=== PATIENT | male | born 1935 | race Caucasian/White ===

== ENCOUNTER 2017-01-19 08:12 | Emergency (ER) | payer OTHER ==
[~2017-01-19 08:12] MED LIST: ASPIRIN325 MG PO; CRESTOR5 MG PO; DIAZEPAM10 MG PO; HYCET1 ML PO; PERCOCET1 TA1 PO; VITAMIN D-31000 UNIT PO
--- NOTE | 2017-01-19 09:08 | ED CLINICAL REPORT ---
Clinical Report - Physicians/Mid Levels [facility] [address] [place] [address] 01/19/2017 8:14 Patient: BALDOMERO SNELL Time Seen: 08:21; initial patient contact. Arrived- By ambulance. Historian- patient. HISTORY OF PRESENT ILLNESS Chief Complaint: NOSEBLEED. Since just prior to arrival and is still present. Location- right nare and left nare. The patient has had epistaxis and nasal congestion. No recent nasal injury. Similar symptoms previously: Several times. Recent medical care: The patient was seen recently in the office. ( Had labs: HCT 39.4, PLT 336k, and nl INR.). REVIEW OF SYSTEMS The patient has had a headache. No bloody stools. All systems otherwise negative, except as recorded above. PAST HISTORY Epistaxis. Chest Wall Pain. Hypertension. Pleurisy. Pneumonia. Peptic Ulcer Disease. Immunizations. Hypercholesterolemia. Mesothelioma. SURGERIES: Back Surgery. Hernia Repair. Shoulder Surgery. Ureteral Stent. Medications: OxyCODONE HCl Oral 10 mg, as needed. OxyCONTIN Oral 20 mg, 3x a day. Allergies: Penicillin. Tetracycline. SOCIAL HISTORY Smoker - current status unknown. No alcohol use or drug use. ADDITIONAL NOTES The nursing notes have been reviewed with agreement regarding the chief complaint, PMH and patient medications and allergies. PHYSICAL EXAM Vital Signs: 01/19/2017 08:23 BP: 102/65. HR: 100. RR: 18. O2 saturation: 96%. Temp: 97.3 F. Pain level now: 2/10. Have been reviewed as normal. Appearance: Alert. No acute distress. Eyes: Eyes normal inspection. No pale conjunctivae or scleral icterus. Nose: Small amount of right-nare and left-nare fresh clots. No active bleeding, nasal mucosal inflammation or tenderness to palpation/percussion over the sinuses. No nasal foreign body. Throat: Bleeding from nasopharynx (Small clot). CVS: Normal heart rate and rhythm. Heart sounds normal. Respiratory: No respiratory distress. Breath sounds normal. Skin: Skin warm and dry. Normal skin color. Neuro: Oriented X 3. PROGRESS AND PROCEDURES Course of Care: 09:06 01/19/17. Afrin to both nares and pressure x 5 minutes and observed for several minutes w/ no active bleeding. Disposition: Discharged home in good and improved condition. Condition: good. CLINICAL IMPRESSION Acute posterior, mild epistaxis INSTRUCTIONS Drink plenty of fluids. Your Current Medications: CONTINUE TAKING THE FOLLOWING MEDICATIONS: Crestor Oral. Docusate Sodium Oral. Megace Oral Oral. OxyCODONE HCl Oral : 10 mg, prn. OxyCONTIN Oral : 20 mg 3x a day. SEROquel Oral. Follow-up: Follow up with your doctor in about four days. Call for an appointment. Screening today revealed the patient's blood pressure to be in the normal range. (Electronically signed by Tommy Rush Dr. 01/19/2017 9:26)
--- NOTE | 2017-01-19 09:08 | ED ORDER SUMMARY ---
..... Patient: BALDOMERO SNELL OrderSheet [facility] VisitID: [id number] [address] [place] [address] 82y, M Registration Date/Time: 01/19/2017 ORDER SHEET Weight: 60.3 kg (stated) Allergies: Tetracycline, Penicillin GENERAL ORDERS: CT Head wo Cont Urgent (08:01/19/2017 Brandon Roper) (Ack 8:29 Dominic) (Cancelled: Physician Order8:30 Brandon Roper) CT Sinus/Facial Bones wo Cont Urgent (08:01/19/2017 Brandon Roper) (Ack 8:29 Dominic) (Cancelled: Physician Order8:30 Brandon Roper) MEDICATION ORDERS: Hydrocodone-APAP PO 10/650 mg (NOW, HIGH ALERT MEDICATION) (08:24 01/19/2017 Brandon Roper) (Cancelled: Physician Order8:29 Brandon Roper) Oxycodone-APAP PO 10/650 mg (HIGH ALERT MEDICATION, NOW) (08:32 01/19/2017 Brandon Roper) (8:45 Bia R.N.) Afrin Nasal [place] 2 sprays (NOW, both nares) (08:01/19/2017 Brandon Roper) (8:45 Bia R.N.) IV FLUIDS: ORDER SHEET NOTES: [Electronically signed by Tommy Rush Dr. (09:26 01/19/2017)] [Electronically signed by Carolina Ayon R.N. (11:43 01/19/2017)] [Electronically locked/signed by Carolina Ayon R.N. (11:43 01/19/2017)]
--- NOTE | 2017-01-19 09:08 | ED ORDER SUMMARY ---
..... Patient: BALDOMERO SNELL OrderSheet [facility] VisitID: [id number] [address] [place] [address] 82y, M Registration Date/Time: 01/19/2017 ORDER SHEET Weight: 60.3 kg (stated) Allergies: Tetracycline, Penicillin GENERAL ORDERS: CT Head wo Cont Urgent (08:01/19/2017 Brandon Roper) (Ack 8:29 Dominic) (Cancelled: Physician Order8:30 Brandon Roper) CT Sinus/Facial Bones wo Cont Urgent (08:01/19/2017 Brandon Roper) (Ack 8:29 Dominic) (Cancelled: Physician Order8:30 Brandon Roper) MEDICATION ORDERS: Hydrocodone-APAP PO 10/650 mg (NOW, HIGH ALERT MEDICATION) (08:24 01/19/2017 Brandon Roper) (Cancelled: Physician Order8:29 Brandon Roper) Oxycodone-APAP PO 10/650 mg (HIGH ALERT MEDICATION, NOW) (08:32 01/19/2017 Brandon Roper) (8:45 Bia R.N.) Afrin Nasal [place] 2 sprays (NOW, both nares) (08:01/19/2017 Brandon Roper) (8:45 Bai R.N.) IV FLUIDS: ORDER SHEET NOTES: [Electronically signed by Tommy Rush Dr. (09:26 01/19/2017)] [Electronically signed by Carolina Ayon R.N. (11:43 01/19/2017)] [Electronically locked/signed by Carolina Ayon R.N. (11:43 01/19/2017)]
--- NOTE | 2017-01-19 09:08 | ED CLINICAL REPORT ---
Clinical Report - Physicians/Mid Levels [facility] [address] [place] [address] 01/19/2017 8:14 Patient: BALDOMERO SNELL Time Seen: 08:21; initial patient contact. Arrived- By ambulance. Historian- patient. HISTORY OF PRESENT ILLNESS Chief Complaint: NOSEBLEED. Since just prior to arrival and is still present. Location- right nare and left nare. The patient has had epistaxis and nasal congestion. No recent nasal injury. Similar symptoms previously: Several times. Recent medical care: The patient was seen recently in the office. ( Had labs: HCT 39.4, PLT 336k, and nl INR.). REVIEW OF SYSTEMS The patient has had a headache. No bloody stools. All systems otherwise negative, except as recorded above. PAST HISTORY Epistaxis. Chest Wall Pain. Hypertension. Pleurisy. Pneumonia. Peptic Ulcer Disease. Immunizations. Hypercholesterolemia. Mesothelioma. SURGERIES: Back Surgery. Hernia Repair. Shoulder Surgery. Ureteral Stent. Medications: OxyCODONE HCl Oral 10 mg, as needed. OxyCONTIN Oral 20 mg, 3x a day. Allergies: Penicillin. Tetracycline. SOCIAL HISTORY Smoker - current status unknown. No alcohol use or drug use. ADDITIONAL NOTES The nursing notes have been reviewed with agreement regarding the chief complaint, PMH and patient medications and allergies. PHYSICAL EXAM Vital Signs: 01/19/2017 08:23 BP: 102/65. HR: 100. RR: 18. O2 saturation: 96%. Temp: 97.3 F. Pain level now: 2/10. Have been reviewed as normal. Appearance: Alert. No acute distress. Eyes: Eyes normal inspection. No pale conjunctivae or scleral icterus. Nose: Small amount of right-nare and left-nare fresh clots. No active bleeding, nasal mucosal inflammation or tenderness to palpation/percussion over the sinuses. No nasal foreign body. Throat: Bleeding from nasopharynx (Small clot). CVS: Normal heart rate and rhythm. Heart sounds normal. Respiratory: No respiratory distress. Breath sounds normal. Skin: Skin warm and dry. Normal skin color. Neuro: Oriented X 3. PROGRESS AND PROCEDURES Course of Care: 09:06 01/19/17. Afrin to both nares and pressure x 5 minutes and observed for several minutes w/ no active bleeding. Disposition: Discharged home in good and improved condition. Condition: good. CLINICAL IMPRESSION Acute posterior, mild epistaxis INSTRUCTIONS Drink plenty of fluids. Your Current Medications: CONTINUE TAKING THE FOLLOWING MEDICATIONS: Crestor Oral. Docusate Sodium Oral. Megace Oral Oral. OxyCODONE HCl Oral : 10 mg, prn. OxyCONTIN Oral : 20 mg 3x a day. SEROquel Oral. Follow-up: Follow up with your doctor in about four days. Call for an appointment. Screening today revealed the patient's blood pressure to be in the normal range. (Electronically signed by Tommy Rush Dr. 01/19/2017 9:26)
--- NOTE | 2017-01-19 09:08 | ED NURSING NOTES ---
Clinical Report - Nurses [facility] [address] [place] [address] 01/19/2017 8:14 Patient: BALDOMERO SNELL TRIAGE Triage time 08:17 Jan 19 2017. Acuity: LEVEL 4. Chief Complaint: NOSEBLEED. 08:23 01/19/17. --08:23 Carolina Ayon R.N. 08:27 01/19/17. SEPSIS SCREEN: Sepsis Screen. Negative (no infection suspected/documented). GARRISON COMA SCORE: Garrison Coma Scale: 15- eyes open spontaneously (4); best verbal response- oriented x 4 (5); best motor response- obeys commands (6). --08:27 Carolina Ayon R.N. 08:23 01/19/17. BP: 102/65 (regular adult cuff) taken on the right arm, while lying. HR: 100 (regular). RR: 18 (regular). O2 saturation: 96% on room air. Temp: 97.3 F (oral). Pain level now: 01/06. --08:27 Carolina Ayon R.N. 08:28 01/19/17. --08:28 Carolina Ayon R.N. 08:33 01/19/17. --08:33 Carolina Ayon R.N. Weight: 60.3 kg stated. Height/Length: 69 inches Per Patient. BMI: 19.6. --08:21 Carolina Ayon R.N. Medications OxyCONTIN Oral 20 mg, 3x a day. --08:20 Carolina Ayon R.N. OxyCODONE HCl Oral 10 mg, as needed. --08:33 Carolina Ayon R.N. Megace Oral Oral. --08:44 Adriano Oliver R.N. SEROquel Oral. --08:44 Adriano Oliver R.N. Crestor Oral. --08:45 Adriano Oliver R.N. Docusate Sodium Oral. --08:45 Adriano Oliver R.N. Allergies Tetracycline. --08:19 Carolina Ayon R.N. Penicillin. --08:19 Carolina Ayon R.N. History Arrived by EMS. Historian: patient. Primary physician (HOA VENTURA). Onset was abrupt. (Started 0745 been happening for the past week). He has had a moderate sore throat and a mild headache. PAST MEDICAL HX: Has had frequent prior nosebleeds. SOCIAL HX: Smoker- current status unknown. No alcohol use or drug use. LEARNING NEEDS ASSESSMENT: The learning needs assessment revealed no barriers. ABUSE ASSESSMENT: Abuse assessment: (nephew uses pain meds). SKIN INTEGRITY ASSESSMENT: Skin integrity risk assessment completed. No skin integrity risk identified. --08:23 Carolina Ayon R.N. PROBLEMS: Epistaxis. Chest Wall Pain. Hypertension. Pleurisy. Pneumonia. Peptic Ulcer Disease. Immunizations. Hypercholesterolemia. --08:19 Carolina Ayon R.N. Mesothelioma. --08:28 Carolina Ayon R.N. ADDITIONAL SURGERIES: Back Surgery. Hernia Repair. Shoulder Surgery. Ureteral Stent. --08:19 Carolina Ayon R.N. Interventions ID band on patient. To treatment room. --08:23 Carolina Ayon R.N. PHYSICAL ASSESSMENT 08:29 01/19/17. To room via stretcher. HEENT: Sinus tenderness present (burning). ( Sore throat). --08:29 Carolina Ayon R.N. NURSING PROGRESS NOTES 08:27 01/19/17. Head of bed elevated. Reassurance given. Two patient identifiers checked. Call light placed in reach. Side rails up x 1. Bed placed in lowest position. Brakes of bed on. --08:27 Carolina Ayon R.N. 08:39 01/19/2017 Oxycodone-APAP (Oxycodone-Acetaminophen) PO 5/325 mg Tablets 2 tab given. Allergies verified, confirmed 5 rights and sedative warning given to the patient. --08:45 Carolina Ayon R.N. 08:40 01/19/2017 Afrin (Oxymetazoline HCl) Nasal [place] 2 spray given. Given in both nares. Allergies verified and confirmed 5 rights. --08:45 Carolina Ayon R.N. 09:07 01/19/17. BP: 98/64 (regular adult cuff) taken on the right arm, while lying. HR: 101. RR: 16. O2 saturation: 94% on room air. Temp: 98.3 F (oral). Pain level now: 03/06. --09:08 Carolina Ayon R.N. 09:09 01/19/17. ( Pain is now 4/10 he says pain is much better now but reported a 2/10 pain at triage.). --09:09 Carolina Ayon R.N. 09:14 01/19/2017 Afrin Nasal [place] Response: no adverse reaction pain is improving. Symptoms have improved the patient feels better. --09:14 Carolina Ayon R.N. 09:17 01/19/17. ( Patient asked when he can take his dose of oxycontine ES and he was advised to wait until around 2PM). --09:17 Carolina Ayon R.N. DISPOSITION / DISCHARGE 09:32 01/19/2017 Oxycodone-APAP PO Response: pain is improving. Symptoms have improved the patient feels better. --09:32 Carolina Ayon R.N. 09:32 01/19/17. Departure time: 09:35 Jan 19 2017. Condition at departure: improved. No learning barriers present. Discharge instructions provided and reviewed with the family (Daughter). Reviewed medication(s) side effects and dosing information (When to take next pain med around 2PM). Treatments reviewed (Epistaxis). Patient and family verbalized understanding. Written instructions provided in [place]. The patient was discharged by the physician. He was discharged home and accompanied by family. He left the Emergency Department in a wheelchair and via private vehicle. Family member driving (Daughter). --09:32 Carolina Ayon R.N. 09:28 01/19/17. BP: 114/53 (regular adult cuff) taken on the right arm, while sitting. HR: 104 (regular). RR: 16. O2 saturation: 99% on room air. Temp: 98.3 F (oral). Pain level now: 8/10. Additional comments: Due to patient moving around and has had a lung biopsy last February that is still giving him some issues. --09:32 Carolina Ayon R.N. Locked/Released at 01/19/2017 11:43 by Carolina Ayon R.N.
--- NOTE | 2017-01-19 11:43 | ED DISCHARGE INSTRUCTIONS ---
Patient: BALDOMERO SNELL General Instructions [facility] VisitID: [id number] [place] [address] 82y, M Registration Date/Time: 01/19/2017 Acute posterior, mild epistaxis INSTRUCTIONS Drink plenty of fluids. Your Current Medications: CONTINUE TAKING THE FOLLOWING MEDICATIONS: Crestor Oral. Docusate Sodium Oral. Megace Oral Oral. OxyCODONE HCl Oral : 10 mg, prn. OxyCONTIN Oral : 20 mg 3x a day. SEROquel Oral. Follow-up: Follow up with your doctor in about four days. Call for an appointment. Screening today revealed the patient's blood pressure to be in the normal range. ADDITIONAL INFORMATION Nosebleed [Adult] Bleeding from the nose most commonly occurs due to injury or drying and cracking of the inner lining of the nose. This can occur during a "common cold," "hay fever" attack, a very hot day, or from dry air in the winter. High blood pressure and hardening of the arteries (atherosclerosis) may also cause nosebleeds. If the bleeding site is found, it may be treated with a chemical or heat or electricity to cause a blood clot to form (cauterized). If the bleeding continues after cautery or if the bleeding site cannot be found, a packing may be placed in your nose to apply pressure and stop the bleeding. The packing may be made of gauze or sponge. A small balloon catheter is sometimes used. These need to be removed by your doctor. Some types of packing dissolve on their own. Home Care: If a packing was put in your nose, unless told otherwise, do not pull on it or try to remove it yourself. You will be given an appointment to have it removed. You may also have been given antibiotics to prevent a sinus infection. If so, complete all the medicine. Do not blow your nose for 12 hours after the bleeding stops. This will allow a strong blood clot to form. Do not pick your nose. This may restart bleeding. Avoid alcohol and hot liquids for the next two days. Alcohol or hot liquids in your mouth can dilate blood vessels in your nose and cause bleeding to start again. Do not take ibuprofen (Advil, Motrin), naprosyn (Aleve) or aspirin-containing medicines since these thin the blood and may promote nose bleeding. You may take Tylenol (acetaminophen) for pain, unless another pain medicine was prescribed. If the bleeding starts again, sit up and lean forward to prevent swallowing blood. Pinch your nose tightly for exactly 5 minutes (watch the clock). If bleeding is not controlled, continue to pinch and call your doctor or return to this facility. If high blood pressure was a cause for your nosebleed, have your blood pressure checked again tomorrow. If you have a "cold" or "hay fever" or dry nasal membranes, lubricate the nasal passages by applying a small amount of Vaseline inside the nose with a Q-tip twice a day (morning and night). Avoid overheating your home, which can dry the air and worsen your condition. Follow Up with your doctor as advised for packing removal. Nasal packing should be rechecked or removed within 2-3 days. Get Prompt Medical Attention if any of the following occur: Another nosebleed that you cannot control Dizziness, weakness or fainting Fever of 100.4F (38C) or higher, or as directed by your healthcare provider Headache Sinus or facial pain Shortness of breath or trouble breathing You have been given the following additional information: Epistaxis (Adult) (Electronically signed by Tommy Rush Dr. 01/19/2017 9:26)
--- NOTE | 2017-01-19 11:43 | ED MED RECONCILIATION SUMMARY ---
Patient: BALDOMERO SNELL Medication Reconciliation Report [facility] VisitID: [id number] [address] [place] [address] 82y, M Registration Date/Time: 01/19/2017 Weight: 60.3 kg Height/Length: 69 in. BMI: 19.6 ALLERGIES: Penicillin, Tetracycline The patient's Home Medications are listed below: CONTINUE TAKING THE FOLLOWING MEDICATIONS: Crestor Oral Docusate Sodium Oral Megace Oral Oral OxyCODONE HCl Oral 10 mg OxyCONTIN Oral 20 mg, 3x a day SEROquel Oral The source(s) of the original Home Medication information: Not obtained. The following Medications were given to the patient in the Emergency Department: Oxycodone-APAP [PO] PO 2 tab, administered: 01/19/2017 8:39:00 AM Afrin [Nasal [place]] Nasal [place] 2 spray, administered: 01/19/2017 8:40:00 AM The following Medications were prescribed to the patient: None.
--- NOTE | 2017-01-19 11:43 | ED MAR SUMMARY ---
..... Medication Administration Record [facility] [address] [place] [address] Patient: BALDOMERO SNELL Visit ID: [id number] 82y, M Weight: 60.3 kg Height/Length: 69 in BMI: 19.6 ALLERGIES: Penicillin, Tetracycline Given 08:39 01/19/2017 Carolina Ayon R.N. Medication Administered: OXYCODONE-APAP [PO] (OXYCODONE-ACETAMINOPHEN), Dose: 2 tab 5/325 mg Tablets PO. Medication Ordered: Oxycodone-APAP PO 10/650 mg (HIGH ALERT MEDICATION, NOW). Given 08:40 01/19/2017 Carolina Ayon RJordy Medication Administered: AFRIN [NASAL SPRAY] (OXYMETAZOLINE HCL), Dose: 2 spray [place] Nasal [place]. Medication Ordered: Afrin Nasal [place] 2 sprays (NOW, both nares).
--- NOTE | 2017-01-19 11:43 | ED MED RECONCILIATION SUMMARY ---
Patient: BALDOMERO SNELL Medication Reconciliation Report [facility] VisitID: [id number] [address] [place] [address] 82y, M Registration Date/Time: 01/19/2017 Weight: 60.3 kg Height/Length: 69 in. BMI: 19.6 ALLERGIES: Penicillin, Tetracycline The patient's Home Medications are listed below: CONTINUE TAKING THE FOLLOWING MEDICATIONS: Crestor Oral Docusate Sodium Oral Megace Oral Oral OxyCODONE HCl Oral 10 mg OxyCONTIN Oral 20 mg, 3x a day SEROquel Oral The source(s) of the original Home Medication information: Not obtained. The following Medications were given to the patient in the Emergency Department: Oxycodone-APAP [PO] PO 2 tab, administered: 01/19/2017 8:39:00 AM Afrin [Nasal [place]] Nasal [place] 2 spray, administered: 01/19/2017 8:40:00 AM The following Medications were prescribed to the patient: None.
--- NOTE | 2017-01-19 11:43 | ED MAR SUMMARY ---
..... Medication Administration Record [facility] [address] [place] [address] Patient: BALDOMERO SNELL Visit ID: [id number] 82y, M Weight: 60.3 kg Height/Length: 69 in BMI: 19.6 ALLERGIES: Penicillin, Tetracycline Given 08:39 01/19/2017 Carolina Ayon R.N. Medication Administered: OXYCODONE-APAP [PO] (OXYCODONE-ACETAMINOPHEN), Dose: 2 tab 5/325 mg Tablets PO. Medication Ordered: Oxycodone-APAP PO 10/650 mg (HIGH ALERT MEDICATION, NOW). Given 08:40 01/19/2017 Carolina Ayon RJordy Medication Administered: AFRIN [NASAL SPRAY] (OXYMETAZOLINE HCL), Dose: 2 spray [place] Nasal [place]. Medication Ordered: Afrin Nasal [place] 2 sprays (NOW, both nares).
== END 2017-01-19 09:35 | disposition home or self-care (01) ==
LOC: ED SRH 08:12
DX: R04.0 Epistaxis (principal); I10 Essential (primary) hypertension; Z88.0 Allergy status to penicillin; Z79.891 Long term (current) use of opiate analgesic

== ENCOUNTER 2017-01-23 12:59 | Emergency (ER) | payer OTHER ==
--- NOTE | 2017-01-23 15:43 | DIAGNOSTIC IMAGING REPORT ---
PROCEDURE: XR ABDOMEN 1 VIEW UPRIGHT INDICATION: CONSTIPATION TECHNIQUE: Single view upright abdomen. COMPARISON: Chest CT 11/08/2016 FINDINGS: Obstipation No free intraperitoneal air. Nonspecific, nonobstructive bowel gas pattern. No suspicious mass, mass effect, or calcifications. The visible osseous structures are intact. IMPRESSION: 1. Obstipation
--- NOTE | 2017-01-23 15:53 | ED CLINICAL REPORT ---
Clinical Report - Physicians/Mid Levels [facility] [address] [place] [address] 01/23/2017 13:00 Patient: BALDOMERO SNELL Time Seen: 13:38. Arrived- By private vehicle. Historian- patient. HISTORY OF PRESENT ILLNESS Chief Complaint: CONSTIPATION. It is described as cramping and diffuse. At its maximum, severity described as severe. When seen in the E.D., severity described as severe. This started about 5 days ago and is still present and now worse. It was gradual in onset and has been constant and waxing/waning. No nausea, vomiting or diarrhea. Similar symptoms previously: Several times. REVIEW OF SYSTEMS No chills, fever, sweats, calf pain or chest pain. No cough, difficulty breathing, pedal edema, palpitations or black stools. No bloody stools, diarrhea, nausea, vomiting or urinary problems. The patient has had abdominal pain and constipation. All systems otherwise negative, except as recorded above. PAST HISTORY Problems: Mesothelioma. Prior Nosebleeds. Epistaxis. Chest Wall Pain. Hypertension. Pleurisy. Pneumonia. Peptic Ulcer Disease. GI Bleeding. Hypercholesterolemia. Additional Surgeries: Back Surgery. Hernia Repair. Shoulder Surgery. Ureteral Stent. Medications: Crestor Oral, daily. Docusate Sodium Oral 100mg, evenings. Megace Oral Oral 10 mg, 2x a day. OxyCODONE HCl Oral 10 mg, as needed. OxyCONTIN Oral 20 mg, 3x a day. SEROquel Oral 25 mg, at bedtime. Allergies: Penicillin. Definite Moderate(hives) Tetracycline. Definite Moderate(hives). SOCIAL HISTORY Former smoker. No alcohol use or drug use. FAMILY HISTORY No significant family medical history. ADDITIONAL NOTES The nursing notes have been reviewed. PHYSICAL EXAM Vital Signs: 01/23/2017 13:11 BP: 122/73. HR: 76. RR: 18. O2 saturation: 92%. Temp: 97.5 F. Pain level now: 8/10. Have been reviewed. Appearance: Alert. Eyes: Pupils equal, round and reactive to light. ENT: Pharynx normal. Neck: Neck supple. CVS: Normal heart rate and rhythm. Heart sounds normal. Respiratory: Decreased air movement. No rales or rhonchi. Abdomen: Soft. Moderate tenderness diffusely. Bowel sounds normal. No organomegaly. No mass. Back: Normal inspection. No CVA tenderness. Skin: Skin warm and dry. Normal skin color. Normal skin turgor. Extremities: Extremities exhibit normal ROM. No calf tenderness. No lower extremity edema. LABS, X-RAYS, AND EKG KUB: Increased stool present. The X-rays were independently viewed by me. PROGRESS AND PROCEDURES Course of Care: The patient's symptoms are now gone. Vital signs have been reviewed. Physical exam findings are improved. Patient/family counseled. Old medical records reviewed. Disposition: Discharged. Condition: stable. CLINICAL IMPRESSION Constipation INSTRUCTIONS Drink plenty of fluids. Warnings: Further evaluation is necessary. GENERAL WARNINGS: Return or contact your physician immediately if your condition worsens or changes unexpectedly, if not improving as expected, or if other problems arise. Your Current Medications: CONTINUE TAKING THE FOLLOWING MEDICATIONS: Crestor Oral : daily. Docusate Sodium Oral : 100mg evenings. Megace Oral Oral : 10 mg 2x a day. OxyCODONE HCl Oral : 10 mg, prn. OxyCONTIN Oral : 20 mg 3x a day. SEROquel Oral : 25 mg at bedtime. OTC Medications: Colace capsules (available over the counter): take according to label instructions. Dulcolax (available over the counter): take according to label instructions. Understanding of the discharge instructions verbalized by patient and family. (Electronically signed by Rad Davis MD 01/24/2017 22:26)
--- NOTE | 2017-01-23 15:53 | ED NURSING NOTES ---
Clinical Report - Nurses [facility] [address] [place] [address] 01/23/2017 13:00 Patient: BALDMOERO SNELL TRIAGE Triage time 13:10 Jan 23 2017. Acuity: LEVEL 3. Chief Complaint: ABDOMINAL PAIN. Alert. GARRISON COMA SCORE: Garrison Coma Scale: 15- eyes open spontaneously (4); best verbal response- oriented x 4 (5); best motor response- obeys commands (6). --13:24 Rajesh Song R.N. 13:11 01/23/17. BP: 122/73. HR: 76. RR: 18. O2 saturation: 92% on room air. Temp: 97.5 F (oral). Pain level now: 8/10. Additional comments: Abd pain. --13:24 Rajesh Song R.N. Weight: 61.2 kg stated. Height/Length: 70.5 inches Per Patient. BMI: 19.1. --13:12 Rajesh Song R.N. Medications Crestor Oral, daily. Docusate Sodium Oral 100mg, evenings. Megace Oral Oral 10 mg, 2x a day. OxyCODONE HCl Oral 10 mg, as needed. OxyCONTIN Oral 20 mg, 3x a day. SEROquel Oral 25 mg, at bedtime. --13:16 Rajesh Song R.N. Allergies Penicillin. Definite Moderate(hives) Tetracycline. Definite Moderate(hives) --13:16 Rajesh Song R.N. History Arrived by private vehicle. Historian: patient. Accompanied by daughter. Primary physician (Ayan). ( Abdominal Pain, which pt thinks is due to constipation. He states that he has lung CA and has been taking Oxycodone for pain and that is what is causing his constipation.). Onset. (about 5 days ago). He has had constipation and abdominal pain. Last oral intake by patient was dinner (about 18 hours ago). Treatment ORDER ENTRY CLERK: None. PAST MEDICAL HX: Immunizations: status is unknown. SOCIAL HX: Former smoker, end date 1976. No alcohol use or drug use. No recent travel. No infectious disease exposure. ABUSE ASSESSMENT: No report of abuse. FALL RISK ASSESSMENT: Fall risk assessment completed. No fall risk identified. NUTRITIONAL RISK ASSESSMENT: The nutritional risk assessment revealed no deficiencies. FUNCTIONAL ASSESSMENT: Functional assessment: no impairments noted. LEARNING NEEDS ASSESSMENT: The learning needs assessment revealed no barriers. SKIN INTEGRITY ASSESSMENT: Skin integrity risk assessment completed. No skin integrity risk identified. --13:24 Rajesh Song R.N. PROBLEMS: Mesothelioma. Prior Nosebleeds. Epistaxis. Chest Wall Pain. Hypertension. Pleurisy. Pneumonia. Peptic Ulcer Disease. Immunizations. GI Bleeding. Hypercholesterolemia. --13:20 Rajesh Song R.N. ADDITIONAL SURGERIES: Back Surgery. Hernia Repair. Shoulder Surgery. Ureteral Stent. --13:20 Rajesh Song R.N. Interventions ID band on patient. To treatment room. --13:24 Rajesh Song R.N. PHYSICAL ASSESSMENT Ambulatory to room. GENERAL / NEURO / PSYCH: Alert. Oriented X 4. Appears in pain. HEENT: Mucous membranes are pink. RESPIRATORY: Mild respiratory distress. CVS: Cardiac rhythm: (RRR). GI / : Abdominal tenderness. SKIN: Skin is warm and dry. --13:24 Rajesh Song R.N. NURSING PROGRESS NOTES Patient gowned. Reassurance given. Patient identifiers checked. Call light placed in reach. Side rails up x 1. Bed placed in lowest position. Brakes of bed on. Patient ready for evaluation- chart flagged and ED physician notified. --13:25 Rajesh Song R.N. 14:20 01/23/17. ( "Feets" Mineral Oil Enema given.). --14:28 Rajesh Song R.N. 15:05 01/23/17. ( "Fleets" Saline Enema given.). --15:11 Rajesh Song R.N. ( Up to BSC having a BM.). --15:29 Rajesh Song R.N. 15:38 01/23/2017 Oxycontin (OxyCODONE HCl ER) PO Tablets 20 mg given. Allergies verified, confirmed 5 rights and sedative warning given to the patient and patient's family. --15:43 Rajesh Song R.N. 15:40 01/23/17. ( Pt had a large formed BM.). --15:40 Rajesh Song R.N. DISPOSITION / DISCHARGE Departure time: 1558. --16:21 Rajesh Song R.N. 15:55 01/23/17. BP: 122/73. HR: 76. RR: 16. O2 saturation: 92% on room air. Temp: 97.5 F. Pain level now: 0/10. --16:21 Rajesh Song R.N. Condition at departure: improved. No learning barriers present. Discharge instructions provided and reviewed with the patient and family. Reviewed medication(s) (prescription given to pt's daughter). Reviewed referral to family practice for followup. Reviewed high fiber diet and need for increased fluid intake (possible alterations to diet discussed such as more fiber and sources for it.). Patient and family verbalized understanding. Written instructions provided in [place]. The patient was discharged by the physician. He was discharged home and accompanied by family. He left the Emergency Department ambulatory and via private vehicle. Family member driving. --16:24 Rajesh Song R.N. Locked/Released at 01/23/2017 16:25 by Rajesh Song R.N.
--- NOTE | 2017-01-23 15:53 | ED ORDER SUMMARY ---
..... Patient: BALDOMERO SNELL OrderSheet [facility] VisitID: [id number] [address] [place] [address] 82y, M Registration Date/Time: 01/23/2017 ORDER SHEET Weight: 61.2 kg (stated) Allergies: Penicillin, Tetracycline GENERAL ORDERS: Abdomen 1V Upright Urgent (13:39 01/23/2017 Krissy GONZALEZ) (13:54 Nina) MEDICATION ORDERS: OxyCONTIN PO 20 mg (HIGH ALERT MEDICATION, Do not crush or chew, NOW) (15:22 01/23/2017 Krissy GONZALEZ) (15:43 Michi Urrutia) IV FLUIDS: ORDER SHEET NOTES: [Electronically signed by Rajesh Song R.N. (16:25 01/23/2017)] [Electronically signed by Rad Davis MD (22:26 01/24/2017)] [Electronically locked/signed by Rajesh Song R.N. (16:01/23/2017)]
--- NOTE | 2017-01-23 15:53 | ED NURSING NOTES ---
Clinical Report - Nurses [facility] [address] [place] [address] 01/23/2017 13:00 Patient: BALDOMERO SNELL TRIAGE Triage time 13:10 Jan 23 2017. Acuity: LEVEL 3. Chief Complaint: ABDOMINAL PAIN. Alert. GARRISON COMA SCORE: Garrison Coma Scale: 15- eyes open spontaneously (4); best verbal response- oriented x 4 (5); best motor response- obeys commands (6). --13:24 Rajesh Song R.N. 13:11 01/23/17. BP: 122/73. HR: 76. RR: 18. O2 saturation: 92% on room air. Temp: 97.5 F (oral). Pain level now: 8/10. Additional comments: Abd pain. --13:24 Rajesh Song R.N. Weight: 61.2 kg stated. Height/Length: 70.5 inches Per Patient. BMI: 19.1. --13:12 Rajesh Song R.N. Medications Crestor Oral, daily. Docusate Sodium Oral 100mg, evenings. Megace Oral Oral 10 mg, 2x a day. OxyCODONE HCl Oral 10 mg, as needed. OxyCONTIN Oral 20 mg, 3x a day. SEROquel Oral 25 mg, at bedtime. --13:16 Rajesh Song R.N. Allergies Penicillin. Definite Moderate(hives) Tetracycline. Definite Moderate(hives) --13:16 Rajesh Song R.N. History Arrived by private vehicle. Historian: patient. Accompanied by daughter. Primary physician (Ayan). ( Abdominal Pain, which pt thinks is due to constipation. He states that he has lung CA and has been taking Oxycodone for pain and that is what is causing his constipation.). Onset. (about 5 days ago). He has had constipation and abdominal pain. Last oral intake by patient was dinner (about 18 hours ago). Treatment FURNITURE UPHOLSTERER: None. PAST MEDICAL HX: Immunizations: status is unknown. SOCIAL HX: Former smoker, end date 1976. No alcohol use or drug use. No recent travel. No infectious disease exposure. ABUSE ASSESSMENT: No report of abuse. FALL RISK ASSESSMENT: Fall risk assessment completed. No fall risk identified. NUTRITIONAL RISK ASSESSMENT: The nutritional risk assessment revealed no deficiencies. FUNCTIONAL ASSESSMENT: Functional assessment: no impairments noted. LEARNING NEEDS ASSESSMENT: The learning needs assessment revealed no barriers. SKIN INTEGRITY ASSESSMENT: Skin integrity risk assessment completed. No skin integrity risk identified. --13:24 Rajesh Song R.N. PROBLEMS: Mesothelioma. Prior Nosebleeds. Epistaxis. Chest Wall Pain. Hypertension. Pleurisy. Pneumonia. Peptic Ulcer Disease. Immunizations. GI Bleeding. Hypercholesterolemia. --13:20 Rajesh Song R.N. ADDITIONAL SURGERIES: Back Surgery. Hernia Repair. Shoulder Surgery. Ureteral Stent. --13:20 Rajesh Song R.N. Interventions ID band on patient. To treatment room. --13:24 Rajesh Song R.N. PHYSICAL ASSESSMENT Ambulatory to room. GENERAL / NEURO / PSYCH: Alert. Oriented X 4. Appears in pain. HEENT: Mucous membranes are pink. RESPIRATORY: Mild respiratory distress. CVS: Cardiac rhythm: (RRR). GI / : Abdominal tenderness. SKIN: Skin is warm and dry. --13:24 Rajesh Song R.N. NURSING PROGRESS NOTES Patient gowned. Reassurance given. Patient identifiers checked. Call light placed in reach. Side rails up x 1. Bed placed in lowest position. Brakes of bed on. Patient ready for evaluation- chart flagged and ED physician notified. --13:25 Rajesh Song R.N. 14:20 01/23/17. ( "Feets" Mineral Oil Enema given.). --14:28 Rajesh Song R.N. 15:05 01/23/17. ( "Fleets" Saline Enema given.). --15:11 Rajseh Song R.N. ( Up to BSC having a BM.). --15:29 Rajesh Song R.N. 15:38 01/23/2017 Oxycontin (OxyCODONE HCl ER) PO Tablets 20 mg given. Allergies verified, confirmed 5 rights and sedative warning given to the patient and patient's family. --15:43 Rajesh Song R.N. 15:40 01/23/17. ( Pt had a large formed BM.). --15:40 Rajesh Song R.N. DISPOSITION / DISCHARGE Departure time: 1558. --16:21 Rajesh Song R.N. 15:55 01/23/17. BP: 122/73. HR: 76. RR: 16. O2 saturation: 92% on room air. Temp: 97.5 F. Pain level now: 0/10. --16:21 Rajesh Song R.N. Condition at departure: improved. No learning barriers present. Discharge instructions provided and reviewed with the patient and family. Reviewed medication(s) (prescription given to pt's daughter). Reviewed referral to family practice for followup. Reviewed high fiber diet and need for increased fluid intake (possible alterations to diet discussed such as more fiber and sources for it.). Patient and family verbalized understanding. Written instructions provided in [place]. The patient was discharged by the physician. He was discharged home and accompanied by family. He left the Emergency Department ambulatory and via private vehicle. Family member driving. --16:24 Rajesh Song R.N. Locked/Released at 01/23/2017 16:25 by Rajesh Song R.N.
--- NOTE | 2017-01-23 15:53 | ED ORDER SUMMARY ---
..... Patient: BALDOMERO SNELL OrderSheet [facility] VisitID: [id number] [address] [place] [address] 82y, M Registration Date/Time: 01/23/2017 ORDER SHEET Weight: 61.2 kg (stated) Allergies: Penicillin, Tetracycline GENERAL ORDERS: Abdomen 1V Upright Urgent (13:39 01/23/2017 Krissy GONZALEZ) (13:54 Nina) MEDICATION ORDERS: OxyCONTIN PO 20 mg (HIGH ALERT MEDICATION, Do not crush or chew, NOW) (15:22 01/23/2017 Krissy GONZALEZ) (15:43 Michi Urrutia) IV FLUIDS: ORDER SHEET NOTES: [Electronically signed by Rajesh Song R.N. (16:25 01/23/2017)] [Electronically signed by Rad Davis MD (22:26 01/24/2017)] [Electronically locked/signed by Rajesh Song R.N. (16:01/23/2017)]
--- NOTE | 2017-01-24 22:26 | ED MED RECONCILIATION SUMMARY ---
Patient: BALDOMERO SNELL Medication Reconciliation Report [facility] VisitID: [id number] [address] [place] [address] 82y, M Registration Date/Time: 01/23/2017 Weight: 61.2 kg Height/Length: (not available) BMI: 19.1 ALLERGIES: Penicillin, Tetracycline The patient's Home Medications are listed below: CONTINUE TAKING THE FOLLOWING MEDICATIONS: Crestor Oral, daily Docusate Sodium Oral 100mg, evenings Megace Oral Oral 10 mg, 2x a day OxyCODONE HCl Oral 10 mg OxyCONTIN Oral 20 mg, 3x a day SEROquel Oral 25 mg, at bedtime The source(s) of the original Home Medication information: Not obtained. The following Medications were given to the patient in the Emergency Department: Oxycontin [PO] PO 20 mg, administered: 01/23/2017 3:38:00 PM The following Medications were prescribed to the patient: Colace capsules (available over the counter): take according to label instructions. -- Rad aDvis MD Dulcolax (available over the counter): take according to label instructions. -- Rad Davis MD
--- NOTE | 2017-01-24 22:26 | ED DISCHARGE INSTRUCTIONS ---
Patient: BALDOMERO SNELL General Instructions Located Within [facility] VisitID: [id number] [place] [address] 82y, M Registration Date/Time: 01/23/2017 Constipation INSTRUCTIONS Drink plenty of fluids. Warnings: Further evaluation is necessary. GENERAL WARNINGS: Return or contact your physician immediately if your condition worsens or changes unexpectedly, if not improving as expected, or if other problems arise. Your Current Medications: CONTINUE TAKING THE FOLLOWING MEDICATIONS: Crestor Oral : daily. Docusate Sodium Oral : 100mg evenings. Megace Oral Oral : 10 mg 2x a day. OxyCODONE HCl Oral : 10 mg, prn. OxyCONTIN Oral : 20 mg 3x a day. SEROquel Oral : 25 mg at bedtime. OTC Medications: Colace capsules (available over the counter): take according to label instructions. Dulcolax (available over the counter): take according to label instructions. Understanding of the discharge instructions verbalized by patient and family. ADDITIONAL INFORMATION Constipation (Adult) Constipation is bowel movements that are less frequent than usual. Stools often become very hard and difficult to pass. This may lead to abdominal pain and bloating. It may also cause painful bowel movements. Constipation may be due to a diet thats low in fiber. Some medications, especially pain medications, can also cause it. Constipation may be treated with enemas, suppositories, laxatives or stool softeners. Your doctor will advise you which will work best for you. Follow the advice below to help avoid this problem in the future. Home Care Medication: Take any medicines as directed. Some laxatives are safe only for occasional use. Others can be taken on a regular basis. Talk to your doctor or pharmacist if you have questions. General Care: Prescription pain medications can cause constipation. If you are prescribed pain medications, ask the doctor whether you should also take a stool softener. A diet high in fiber with plenty of fluids helps to maintain regular, soft bowel movements. The following foods are good sources of dietary fiber: Cereals and breads: Whole grain cereal with bran, oatmeal, rolled oats, whole grain breads Fruits: All fruits (fresh and dried), raisins, prunes, apricots, berries, figs Vegetables: Any fresh vegetables, especially peas, broccoli, brussels sprouts, winter squash, green beans, cauliflower, costa beans, carrots Other: Popcorn, brown rice Drink plenty of water when you increase the amount of fiber you eat. Follow Up with your doctor or return to this facility if symptoms do not improve in the next few days. You may require further tests or a referral to a specialist. Get Prompt Medical Attention if any of the following occur: Fever over 100.4F (38C) Failure to resume normal bowel movements Increasing abdominal or back pain Nausea or vomiting Abdominal swelling Blood in the stool Weakness, dizziness or fainting Unexpected vaginal bleeding Fecal Impaction (Treated) Fecal Impaction is a severe form of constipation. There is a large amount of hard stool in the rectum that cannot be passed. Although your impaction has been relieved, it may be necessary to continue treatment at home as advised by your doctor. Follow the advice below to help avoid this problem in the future. Home Care Medication: Take any medicines as directed. Some laxatives are safe only for occasional use. Others can be taken on a regular basis. Talk to your doctor or pharmacist if you have questions. General Care: Prescription pain medications can cause constipation. If you are prescribed pain medications, ask the doctor whether you should also take a stool softener. A diet high in fiber with plenty of fluids helps to maintain regular, soft bowel movements. The following foods are good sources of dietary fiber: Cereals and breads: Whole-grain cereal with bran, oatmeal, rolled oats, whole-grain breads Fruits: All fruits (fresh and dried), raisins, prunes, apricots, berries, figs Vegetables: Any fresh vegetables, especially peas, broccoli, brussels sprouts, winter squash, green beans, cauliflower, costa beans, carrots Other: Popcorn, brown rice Drink plenty of water when you increase the amount of fiber you eat. Follow Up with your doctor or return to this facility if symptoms do not improve in the next few days. You may require further tests or a referral to a specialist. Get Prompt Medical Attention if any of the following occur: Fever over 100.4F (38C) Failure to resume normal bowel movements Increasing abdominal or back pain Nausea or vomiting Abdominal swelling Blood in the stool Weakness, dizziness or fainting Unexpected vaginal bleeding High Fiber Diet Fiber is present in all fruits, vegetables, cereals and grains. Fiber passes through the body undigested. A high fiber diet helps food move through the intestinal tract. The added bulk is helpful in preventing constipation. In people with diverticulosis it serves to clean out the pouches along the colon wall while preventing new ones from forming. A high fiber diet also reduces the risk of colon cancer, decreases blood cholesterol and prevents high blood sugar in people with diabetes. The foods listed below are high in fiber and should be included in your diet. If you are not used to high fiber foods, start with 1 or 2 foods from this list. Every 3-4 days add a new one to your diet until you are eating 4 high fiber foods per day. This should give you 20-35 Gm of fiber/day. It is also important to drink a lot of water when you are on this diet (6-8 glasses a day). Water causes the fiber to swell and increases the benefit. Foods High In Dietary Fiber: BREADS: Made with 100% whole wheat flour; kaushal, wheat or rye crackers; tortillas, bran muffins CEREALS: Whole grain cereal with bran (Chex, Raisin Bran, Mott Bran), oatmeal, rolled oats, granola, wheat flakes, brown rice NUTS: Any nuts FRUITS: All fresh fruits along with edible skins, (bananas, citrus fruit, mangoes, pears, prunes, raisins, apples, pineapple, apricot, melon, jams and marmalades), fruit juices (especially prune juice) VEGETABLES: All types, preferably raw or lightly cooked: especially, celery, eggplant, potatoes,spinach, broccoli, brussel sprouts, winter squash, carrots, cauliflower, soybeans, lentils, fresh and dried beans of all kinds OTHER: Popcorn, any spices Docusate Sodium Oral tablet What is this medicine? DOCUSATE (doc CUE sayt) is stool softener. It helps prevent constipation and straining or discomfort associated with hard or dry stools. How should I use this medicine? Take this medicine by mouth with a glass of water. Follow the directions on the label. Take your doses at regular intervals. Do not take your medicine more often than directed. Talk to your communications planner regarding the use of this medicine in children. While this medicine may be prescribed for children as young as 2 years for selected conditions, precautions do apply. What side effects may I notice from receiving this medicine? Side effects that you should report to your doctor or health health care recruiter as soon as possible: allergic reactions like skin rash, itching or hives, swelling of the face, lips, or tongue Side effects that usually do not require medical attention (report to your doctor or health health care recruiter if they continue or are bothersome): diarrhea stomach cramps throat irritation What may interact with this medicine? mineral oil What if I miss a dose? If you miss a dose, take it as soon as you can. If it is almost time for your next dose, take only that dose. Do not take double or extra doses. Where should I keep my medicine? Keep out of the reach of children. Store at room temperature between 15 and 30 degrees C (59 and 86 degrees F). Throw away any unused medicine after the expiration date. What should I tell my health care provider before I take this medicine? They need to know if you have any of these conditions: nausea or vomiting severe constipation stomach pain sudden change in bowel habit lasting more than 2 weeks an unusual or allergic reaction to docusate, other medicines, foods, dyes, or preservatives or trying to get breast-feeding What should I watch for while using this medicine? Do not use for more than one week without advice from your doctor or health health care recruiter. If your constipation returns, check with your doctor or health health care recruiter. Drink plenty of water while taking this medicine. Drinking water helps decrease constipation. Stop using this medicine and contact your doctor or health health care recruiter if you experience any rectal bleeding or do not have a bowel movement after use. These could be signs of a more serious condition. You have been given the following additional information: Constipation (Adult) Fecal Impaction, Treated Diet, High Fiber Docusate Sodium Oral tablet (Electronically signed by Rad Davis MD 01/24/2017 22:26)
--- NOTE | 2017-01-24 22:26 | ED DISCHARGE INSTRUCTIONS ---
Patient: BALDOMERO SNELL General Instructions Located Within [facility] VisitID: [id number] [place] [address] 82y, M Registration Date/Time: 01/23/2017 Constipation INSTRUCTIONS Drink plenty of fluids. Warnings: Further evaluation is necessary. GENERAL WARNINGS: Return or contact your physician immediately if your condition worsens or changes unexpectedly, if not improving as expected, or if other problems arise. Your Current Medications: CONTINUE TAKING THE FOLLOWING MEDICATIONS: Crestor Oral : daily. Docusate Sodium Oral : 100mg evenings. Megace Oral Oral : 10 mg 2x a day. OxyCODONE HCl Oral : 10 mg, prn. OxyCONTIN Oral : 20 mg 3x a day. SEROquel Oral : 25 mg at bedtime. OTC Medications: Colace capsules (available over the counter): take according to label instructions. Dulcolax (available over the counter): take according to label instructions. Understanding of the discharge instructions verbalized by patient and family. ADDITIONAL INFORMATION Constipation (Adult) Constipation is bowel movements that are less frequent than usual. Stools often become very hard and difficult to pass. This may lead to abdominal pain and bloating. It may also cause painful bowel movements. Constipation may be due to a diet thats low in fiber. Some medications, especially pain medications, can also cause it. Constipation may be treated with enemas, suppositories, laxatives or stool softeners. Your doctor will advise you which will work best for you. Follow the advice below to help avoid this problem in the future. Home Care Medication: Take any medicines as directed. Some laxatives are safe only for occasional use. Others can be taken on a regular basis. Talk to your doctor or pharmacist if you have questions. General Care: Prescription pain medications can cause constipation. If you are prescribed pain medications, ask the doctor whether you should also take a stool softener. A diet high in fiber with plenty of fluids helps to maintain regular, soft bowel movements. The following foods are good sources of dietary fiber: Cereals and breads: Whole grain cereal with bran, oatmeal, rolled oats, whole grain breads Fruits: All fruits (fresh and dried), raisins, prunes, apricots, berries, figs Vegetables: Any fresh vegetables, especially peas, broccoli, brussels sprouts, winter squash, green beans, cauliflower, costa beans, carrots Other: Popcorn, brown rice Drink plenty of water when you increase the amount of fiber you eat. Follow Up with your doctor or return to this facility if symptoms do not improve in the next few days. You may require further tests or a referral to a specialist. Get Prompt Medical Attention if any of the following occur: Fever over 100.4F (38C) Failure to resume normal bowel movements Increasing abdominal or back pain Nausea or vomiting Abdominal swelling Blood in the stool Weakness, dizziness or fainting Unexpected vaginal bleeding Fecal Impaction (Treated) Fecal Impaction is a severe form of constipation. There is a large amount of hard stool in the rectum that cannot be passed. Although your impaction has been relieved, it may be necessary to continue treatment at home as advised by your doctor. Follow the advice below to help avoid this problem in the future. Home Care Medication: Take any medicines as directed. Some laxatives are safe only for occasional use. Others can be taken on a regular basis. Talk to your doctor or pharmacist if you have questions. General Care: Prescription pain medications can cause constipation. If you are prescribed pain medications, ask the doctor whether you should also take a stool softener. A diet high in fiber with plenty of fluids helps to maintain regular, soft bowel movements. The following foods are good sources of dietary fiber: Cereals and breads: Whole-grain cereal with bran, oatmeal, rolled oats, whole-grain breads Fruits: All fruits (fresh and dried), raisins, prunes, apricots, berries, figs Vegetables: Any fresh vegetables, especially peas, broccoli, brussels sprouts, winter squash, green beans, cauliflower, costa beans, carrots Other: Popcorn, brown rice Drink plenty of water when you increase the amount of fiber you eat. Follow Up with your doctor or return to this facility if symptoms do not improve in the next few days. You may require further tests or a referral to a specialist. Get Prompt Medical Attention if any of the following occur: Fever over 100.4F (38C) Failure to resume normal bowel movements Increasing abdominal or back pain Nausea or vomiting Abdominal swelling Blood in the stool Weakness, dizziness or fainting Unexpected vaginal bleeding High Fiber Diet Fiber is present in all fruits, vegetables, cereals and grains. Fiber passes through the body undigested. A high fiber diet helps food move through the intestinal tract. The added bulk is helpful in preventing constipation. In people with diverticulosis it serves to clean out the pouches along the colon wall while preventing new ones from forming. A high fiber diet also reduces the risk of colon cancer, decreases blood cholesterol and prevents high blood sugar in people with diabetes. The foods listed below are high in fiber and should be included in your diet. If you are not used to high fiber foods, start with 1 or 2 foods from this list. Every 3-4 days add a new one to your diet until you are eating 4 high fiber foods per day. This should give you 20-35 Gm of fiber/day. It is also important to drink a lot of water when you are on this diet (6-8 glasses a day). Water causes the fiber to swell and increases the benefit. Foods High In Dietary Fiber: BREADS: Made with 100% whole wheat flour; kaushal, wheat or rye crackers; tortillas, bran muffins CEREALS: Whole grain cereal with bran (Chex, Raisin Bran, Evergreen Bran), oatmeal, rolled oats, granola, wheat flakes, brown rice NUTS: Any nuts FRUITS: All fresh fruits along with edible skins, (bananas, citrus fruit, mangoes, pears, prunes, raisins, apples, pineapple, apricot, melon, jams and marmalades), fruit juices (especially prune juice) VEGETABLES: All types, preferably raw or lightly cooked: especially, celery, eggplant, potatoes,spinach, broccoli, brussel sprouts, winter squash, carrots, cauliflower, soybeans, lentils, fresh and dried beans of all kinds OTHER: Popcorn, any spices Docusate Sodium Oral tablet What is this medicine? DOCUSATE (doc CUE sayt) is stool softener. It helps prevent constipation and straining or discomfort associated with hard or dry stools. How should I use this medicine? Take this medicine by mouth with a glass of water. Follow the directions on the label. Take your doses at regular intervals. Do not take your medicine more often than directed. Talk to your primer charger regarding the use of this medicine in children. While this medicine may be prescribed for children as young as 2 years for selected conditions, precautions do apply. What side effects may I notice from receiving this medicine? Side effects that you should report to your doctor or health infant caregiver as soon as possible: allergic reactions like skin rash, itching or hives, swelling of the face, lips, or tongue Side effects that usually do not require medical attention (report to your doctor or health infant caregiver if they continue or are bothersome): diarrhea stomach cramps throat irritation What may interact with this medicine? mineral oil What if I miss a dose? If you miss a dose, take it as soon as you can. If it is almost time for your next dose, take only that dose. Do not take double or extra doses. Where should I keep my medicine? Keep out of the reach of children. Store at room temperature between 15 and 30 degrees C (59 and 86 degrees F). Throw away any unused medicine after the expiration date. What should I tell my health care provider before I take this medicine? They need to know if you have any of these conditions: nausea or vomiting severe constipation stomach pain sudden change in bowel habit lasting more than 2 weeks an unusual or allergic reaction to docusate, other medicines, foods, dyes, or preservatives or trying to get breast-feeding What should I watch for while using this medicine? Do not use for more than one week without advice from your doctor or health infant caregiver. If your constipation returns, check with your doctor or health infant caregiver. Drink plenty of water while taking this medicine. Drinking water helps decrease constipation. Stop using this medicine and contact your doctor or health infant caregiver if you experience any rectal bleeding or do not have a bowel movement after use. These could be signs of a more serious condition. You have been given the following additional information: Constipation (Adult) Fecal Impaction, Treated Diet, High Fiber Docusate Sodium Oral tablet (Electronically signed by Rad Davis MD 01/24/2017 22:26)
--- NOTE | 2017-01-24 22:26 | ED MED RECONCILIATION SUMMARY ---
Patient: BALDOMERO SNELL Medication Reconciliation Report [facility] VisitID: [id number] [address] [place] [address] 82y, M Registration Date/Time: 01/23/2017 Weight: 61.2 kg Height/Length: (not available) BMI: 19.1 ALLERGIES: Penicillin, Tetracycline The patient's Home Medications are listed below: CONTINUE TAKING THE FOLLOWING MEDICATIONS: Crestor Oral, daily Docusate Sodium Oral 100mg, evenings Megace Oral Oral 10 mg, 2x a day OxyCODONE HCl Oral 10 mg OxyCONTIN Oral 20 mg, 3x a day SEROquel Oral 25 mg, at bedtime The source(s) of the original Home Medication information: Not obtained. The following Medications were given to the patient in the Emergency Department: Oxycontin [PO] PO 20 mg, administered: 01/23/2017 3:38:00 PM The following Medications were prescribed to the patient: Colace capsules (available over the counter): take according to label instructions. -- Rad Davis MD Dulcolax (available over the counter): take according to label instructions. -- Rad Davis MD
--- NOTE | 2017-01-24 22:26 | ED MAR SUMMARY ---
..... Medication Administration Record [facility] [address] [place] [address] Patient: BALDOMERO SNELL Visit ID: [id number] 82y, M Weight: 61.2 kg Height/Length: 70.5 in BMI: 19.1 ALLERGIES: Penicillin, Tetracycline Given 15:38 01/23/2017 Rajesh Song R.N. Medication Administered: OXYCONTIN [PO] (OXYCODONE HCL ER), Dose: 20 mg Tablets PO. Medication Ordered: OxyCONTIN PO 20 mg (HIGH ALERT MEDICATION, Do not crush or chew, NOW).
--- NOTE | 2017-01-24 22:26 | ED MAR SUMMARY ---
..... Medication Administration Record [facility] [address] [place] [address] Patient: BALDOMERO SNELL Visit ID: [id number] 82y, M Weight: 61.2 kg Height/Length: 70.5 in BMI: 19.1 ALLERGIES: Penicillin, Tetracycline Given 15:38 01/23/2017 Rajesh Song R.N. Medication Administered: OXYCONTIN [PO] (OXYCODONE HCL ER), Dose: 20 mg Tablets PO. Medication Ordered: OxyCONTIN PO 20 mg (HIGH ALERT MEDICATION, Do not crush or chew, NOW).
== END 2017-01-23 15:58 | disposition home or self-care (01) ==
LOC: ED SRH 12:59
DX: K59.00 Constipation, unspecified (principal); I10 Essential (primary) hypertension; Z88.0 Allergy status to penicillin; Z79.899 Other long term (current) drug therapy